=== PATIENT | female | born 1985 | race Caucasian/White ===

== ENCOUNTER 2017-10-07 06:10 | Inpatient (IN) | payer MEDICAID ==
[2017-10-07] MEDS ORDERED: LACTATED RINGER'S 1,000 ML IV (06:51)
[2017-10-07] MEDS ORDERED: IBUPROFEN 600 MG TAB PO (07:00)
[2017-10-07] MEDS ORDERED: BUTORPHANOL 2 MG INJ IV (07:00)
[2017-10-07] MEDS ORDERED: LIDOCAINE 1% (MPF) 30 ML INJ INJ (07:00)
[2017-10-07] MEDS ORDERED: MISOPROSTOL 200 MCG TAB PR ×2 (07:00→16:00)
[2017-10-07] MEDS ORDERED: METHYLERGONOVINE 0.2 MG INJ IM ×2 (07:00→16:00)
[2017-10-07] MEDS ORDERED: CARBOPROST 250 MCG INJ IM ×2 (07:00→16:00)
[2017-10-07] MEDS ORDERED: OXYTOCIN 30 UNITS/LR 500 ML IV ×2 (07:00→16:00)
[2017-10-07] MEDS: LACTATED RINGER'S 1,000 ML IV ×2 (07:23→09:29)
[2017-10-07 07:34] LABS: ADD MAN DIFF? NO
[2017-10-07 07:38] LABS: BASOPHILS % 0.3 % (0.0-2.0); EOSINOPHILS # 0.1 10^3/ul (0.0-0.5); HEMATOCRIT 31.9 % (37.0-47.0); HEMOGLOBIN 10.2 g/dl (12.0-16.0); LYMPHOCYTES # 1.4 10^3/ul (0.8-2.9); MEAN CORPUSCULAR VOLUME 78.2 fl (82.0-101.0); MEAN PLATELET VOLUME 10.5 fl (7.4-10.4); MONOCYTE # 0.2 10^3/ul (0.3-0.9); MONOCYTES % 3.6 % (0.0-11.0); NEUTROPHILS % 74.7 % (39.0-77.0); PLATELET COUNT 239 10^3/UL (140-415); RED BLOOD COUNT 4.08 10^6/ul (4.20-5.40); RED CELL DISTRIBUTION WIDTH 14.2 % (11.5-14.5)
[2017-10-07 07:38] LABS: WHITE BLOOD COUNT 6.8 10^3/ul (4.8-10.8)
[2017-10-07 08:09] LABS: INR 0.98; PROTIME 13.1 Sec (11.9-14.9)
[2017-10-07 08:10] LABS: PARTIAL THROMBOPLASTIN TIME 29.2 Sec (25.0-35.0)
[2017-10-07] MEDS ORDERED: FENTAnyl 2MCG/ML-ROPIV 0.2% 100 ML (08:45)
[2017-10-07] MEDS: OXYTOCIN 30 UNITS/LR 500 ML IV ×2 (12:20→13:06)
[2017-10-07] MEDS ORDERED: NALOXONE (0.4 MG/ML) INJ IV (12:30)
[2017-10-07] MEDS ORDERED: FENTAnyl 2MCG/ML-ROPIV 0.2% 100 ML BAG EPI (12:30)
[2017-10-07] MEDS ORDERED: WITCH HAZEL/GLYCERIN PAD PR (16:00)
[2017-10-07] MEDS ORDERED: BENZOCAINE 20% 56 ML SPRAY TOP (16:00)
[2017-10-07] MEDS ORDERED: ZOLPIDEM 5 MG TAB PO (16:00)
[2017-10-07] MEDS ORDERED: OXYCODONE/ASPIRIN (4.88/325) TAB PO (16:00)
[2017-10-07 17:16] LABS: RAPID PLASMA REAGIN NONREACTIVE (NR)
[2017-10-07] MEDS: IBUPROFEN 600 MG TAB PO ×2 (18:19→23:29)
[2017-10-07] MEDS: SENNA/DOCUSATE NA (8.6MG/50MG) TAB PO (20:28)
[2017-10-07] MEDS: OXYCODONE/ASPIRIN (4.88/325) TAB PO (20:29)
[2017-10-08] MEDS: IBUPROFEN 600 MG TAB PO ×3 (05:41→18:17)
[2017-10-08] MEDS: SENNA/DOCUSATE NA (8.6MG/50MG) TAB PO ×2 (09:02→21:03)
[2017-10-08 09:28] LABS: ADD MAN DIFF? NO
[2017-10-08 09:30] LABS: WHITE BLOOD COUNT 7.4 10^3/ul (4.8-10.8)
[2017-10-08 09:30] LABS: BASOPHILS % 0.3 % (0.0-2.0); EOSINOPHILS # 0.1 10^3/ul (0.0-0.5); EOSINOPHILS % 1.9 % (0.0-7.0); HEMATOCRIT 29.6 % (37.0-47.0); HEMOGLOBIN 9.6 g/dl (12.0-16.0); LYMPHOCYTES # 2.1 10^3/ul (0.8-2.9); LYMPHOCYTES % 28.7 % (15.0-51.0); MEAN CORPUSCULAR HEMOGLOBIN 25.6 pg (29.0-33.0); MEAN CORPUSCULAR HGB CONC 32.4 g/dl (32.0-37.0); MEAN CORPUSCULAR VOLUME 78.9 fl (82.0-101.0); MEAN PLATELET VOLUME 10.8 fl (7.4-10.4); MONOCYTE # 0.2 10^3/ul (0.3-0.9); NEUTROPHIL # 4.8 10^3/ul (1.6-7.5); NEUTROPHILS % 65.6 % (39.0-77.0); PLATELET COUNT 219 10^3/UL (140-415); RED BLOOD COUNT 3.75 10^6/ul (4.20-5.40); RED CELL DISTRIBUTION WIDTH 14.4 % (11.5-14.5)
[2017-10-08] MEDS: LANOLIN 7 GM TUBE TOP (15:55)
[2017-10-08] MEDS: OXYCODONE/ASPIRIN (4.88/325) TAB PO (15:56)
[2017-10-09] MEDS: IBUPROFEN 600 MG TAB PO ×3 (00:27→12:31)
[2017-10-09] MEDS: SENNA/DOCUSATE NA (8.6MG/50MG) TAB PO (08:43)
[2017-10-09] MEDS: DIPHTH/TET/ACEL PERTUSS (ADULT) 0.5 ML VIAL IM* (12:31)
== END 2017-10-09 17:30 | disposition home or self-care (01) | DRG 775 ==
LOC: OBT 06:10 → L-D 06:10 → OBT 06:35 → L-D 06:35 → PP1 15:12
PROVIDERS: Obstetrics & Gynecology
PROC: 10E0XZZ Delivery of Products of Conception, External Approach (ICD-10-PCS; principal; 2017-10-07)
PROC: 3E033VJ Introduction of Other Hormone into Peripheral Vein, Percutaneous Approach (ICD-10-PCS; 2017-10-07)
DX: O99.214 Obesity complicating childbirth (principal); E66.01 Morbid (severe) obesity due to excess calories; Z68.39 Body mass index [BMI] 39.0-39.9, adult; O99.284 Endocrine, nutritional and metabolic diseases complicating childbirth; E03.9 Hypothyroidism, unspecified; Z3A.39 39 weeks gestation of pregnancy; Z37.0 Single live birth
CPT/HCPCS: 62319; 76815; 85025; 85610; 85730; 86592; 86850; 86900; 86901